=== PATIENT | male | born 2000 | race Caucasian/White ===

== ENCOUNTER 2020-09-23 16:25 | Emergency (ER) | payer OTHER, SELFPAY ==
[2020-09-23 16:32] VITALS: BP 117/77; PULSE 98; RESP 16; TEMP 37.6; O2SAT 98
--- NOTE | 2020-09-23 16:32 | ED.SKABFB ---
HPI - Skin/Abscess/Foreign Bdy General Chief complaint: Skin/Abscess/Foreign Body Stated complaint: rash Time Seen by Provider: 09/23/20 16:32 Source: patient and RN notes reviewed History of Present Illness HPI narrative: Patient is a 20-year-old male who presents the urgent care with complaints of a rash to bilateral arms and torso. Patient states that started approximately 2 to 3 weeks ago. 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 Patient states that it has worsened in some areas over the last couple of days. Denies of any use of [id number] medication. No other acute complaints. No acute distress noted. Patient read a plan of care. Some parts of this dictation were generated by voice recognition software and may contain typographical and/or grammatical inaccuracies. Related Data Home Medications Medication Instructions Recorded Confirmed amoxicillin [Amoxil] 500 mg PO Q12H 09/23/20 09/23/20 Allergies Allergy/AdvReac Type Severity Reaction Status Date / Time No Known Allergies Allergy Verified 09/23/20 16:31 Review of Systems Review of Systems: CONSTITUTIONAL: Denies fever, chills, or sweats. EYES: Denies visual changes, redness, or discharge. ENT: Denies rhinorrhea, congestion, sore throat, or otalgia. CARDIOVASCULAR: Denies chest pain, palpitations, or edema. RESPIRATORY: Denies cough or dyspnea. GASTROINTESTINAL: Denies abdominal pain, nausea, vomiting, or diarrhea. GENITOURINARY: Denies dysuria or hematuria. SKIN: Reports of itchy rash to bilateral arms and torso MUSCULOSKELETAL: Denies back pain, joint pain, or myalgia. NEUROLOGIC: Denies headache, numbness, or weakness. All other systems reviewed are negative, except as documented in HPI. PMFSH Comments At the time of my signature, I reviewed and agree with the nursing past medical, surgical, social, and family history. There is no relevant family history pertinent to the patient complaint. Exam Narrative: GENERAL: This is a well-nourished, well-developed patient, in no apparent distress. HEAD: normocephalic, atraumatic. EYES: PERRL. Sclera clear/white. Vision is grossly intact. EARS: External ears normal NOSE: External nose normal with no obvious nasal discharge, nares without redness, no rhinorrhea. THROAT: Mucous membranes moist NECK: Neck supple CARDIOVASCULAR: Regular rate and rhythm without murmurs, gallops, or rubs. RESPIRATORY: Clear to auscultation. Breath sounds equal bilaterally. No wheezes, rales, or rhonchi. SKIN: Scattered [place] dermatitis with some scabbing to bilateral upper extremities and torso NEURO: awake, alert, and oriented to person, place and time. There were no obvious focal neurologic abnormalities. EXTREMITIES: No clubbing, cyanosis, or edema. Course Vital Signs Vital signs: Vital Signs Temperature 99.6 F 09/23/20 16:32 Pulse Rate 98 09/23/20 16:32 Respiratory Rate 16 09/23/20 16:32 Blood Pressure 117/77 09/23/20 16:32 Pulse Oximetry 98 09/23/20 16:32 Temperature 99.6 F 09/23/20 16:32 Pulse Rate 98 09/23/20 16:32 Respiratory Rate 16 09/23/20 16:32 Blood Pressure 117/77 09/23/20 16:32 Pulse Oximetry 98 09/23/20 16:32 Reviewed MDM - Skin/Abscess/Foreign Bdy MDM Narrative Medical decision making narrative: Advised the patient to use Benadryl daily or daily antihistamine such as Claritin or Zyrtec. Use the prescription cream to the affected areas. Complete steroid regimen as prescribed. Be sure to eat and drink with the medication. Use TecNu scrub to the affected areas [id number] daily while showering. Follow-up with your PCP within 2 to 5 days or for worsening symptoms or failure to improve. Differential Diagnosis Differential diagnosis: Likely abscess of skin or subcutaneous tissue, allergic reaction to drug, cellulitis, insect bites, impetigo and contact dermatitis Critical Care Time Critical Care Time Critical Care Time: No Discha
== END 2020-09-23 16:46 | disposition home or self-care (01) ==
PROVIDERS: Emergency Provider Nurse Practitioner Family; PCP Internal Medicine Infectious Disease
DX: L23.7 Allergic contact dermatitis due to plants, except food (principal)
CPT/HCPCS: 99213; G0463